=== PATIENT | male | born 1945 | race Two or more races ===

== ENCOUNTER 2024-12-17 15:16 | Inpatient (IN) | payer OTHER ==
[~2024-12-17] VITALS: Ht 167.6 cm; Wt 67.3 kg
--- NOTE | 2024-12-17 15:40 | ED.PDOC ---
SOB-HPI HPI Comments HPI: Poor Historian. HPI: 79 year old male LA NENA presents to the ED with chief complaint of SOB. EMS reports patient is coming from [facility] for complaint of respiratory failure and pulmonary edema. EMS relays that the patient had a CT Angio Chest, Bilateral Lower Ext US, and Chest XR performed at the hospital, only result being pulmonary edema with no PE and no DVT. EMS states patient was given 40mg of Lasix, Solu-Medrol, Rocephin, a DuoNeb treatment, and was placed on BiPap prior to their transfer. EMS notes patient's labs indicated Lactic Acid 2.4, INR of 1, Negative COVID-19, normal Troponin, slightly elevated BNP and D-Dimer, but PE and DVT was ruled out. EMS reports patient's EKG noted RBBB. Patient denies any chest pain, fever, chills, cough, dizziness, or N/V. Upon arrival, patient states that he feels significantly better. Initial Vitals: Temp: BP: HR: RR: O2 Sat.: Past Medical History: Insomnia, HLD, Neuropathy Past Surgical History: Denies Social History: Denies smoking, ETOH, and drug use Medication: Denies Allergies: NKDA REVIEW OF SYSTEMS: CONSTITUTIONAL: Denies acute: fever, diaphoresis, chills, generalized weakness. HEAD: Denies acute: headache, photophobia Eyes: Denies acute: Double vision, vision loss, eye pain, eye discharge. EARS: Denies acute: tinnitus, hearing loss, ear discharge, ear pain, THROAT: Denies acute: sore throat, swelling, difficulty swallowing , pain with swallowing, change in voice. NECK: Denies acute: neck pain, neck swelling, stiff neck. HEART: Denies acute : chest pain, palpitations, LUNGS: Denies acute: wheezing, cough, hemoptysis ABDOMEN: Denies acute: abdominal pain, Nausea, Vomiting, diarrhea, melena , hematemesis, hematochezia SKIN: Denies acute: rash, redness, lesions, itchiness. EXTREMITIES: Denies acute: calf pain, numbness, tingling, weakness, denies pain in extremity. Denies acute: Low back pain. Neuro: Denies acute: focal neurological deficit, motor or sensory focal neurological deficit, tremors, seizure like activity, confusion, dizziness, change in mental status, loss of bowel or bladder function, cauda equina like symptoms. : Denies acute: dysuria, hematuria, flank pain, increase in urinary frequency. PSYCH: Denies acute: hallucination, suicidal ideation, homicidal ideation. PHYSICAL EXAM: General: no acute distress, awake and alert. Head: normocephalic, atraumatic. Neck: supple, trachea is midline, no swelling. Throat: Normal phonation. Eyes:, no erythema, no purulent discharge, no proptosis, no icterus. Heart: regular rate, regular rhythm, no significant murmur appreciated. Lungs: no apparent respiratory distress, Able to speak in full sentences. No wheezing, no rhonchi, no crackles. No stridors Clear to auscultation bilaterally. Abdomen: non tender to palpation, non distended, soft, no guarding, no rebound, + bowel sounds. Neuro: Awake, Alert, oriented to name, self, situation, follows commands GCS=15. Speech is normal. Skin: no petechia, no purpura, no cyanosis, non-pale, not jaundice. Lower extremities: --no - Pitting edema no deformity, no focal swelling, no calf TTP. Makes eye contact. moves all four extremities. Face: no apparent facial droop. Chief Complaint: Shortness of Breath Time Seen by MD: 15:35 Reviewed notes: Medications, Allergies Information Source: Patient, Emergency Med Personnel Mode of Arrival: EMS Was a procedure done? Was a procedure done?: No X-Ray, Labs, Meds, VS Vital Signs Date Time Temp Pulse Resp B/P (MAP) Pulse Ox O2 Delivery O2 Flow Rate FiO2 12/17/24 20:00 98.3 79 22 133/71 (91) 99 98.3 12/17/24 20:00 79 18 99 Oxymizer 6 N/A 12/17/24 18:00 85 26 155/78 (103) 96 12/17/24 17:45 144/69 12/17/24 17:06 98.6 81 25 144/69 (94) 95 98.6 12/17/24 16:00 80 12/17/24 15:48 83 12/17/24 15:44 Oxymizer 6 N/A 12/17/24 15:30 97.3 79 23 154/71 (98) 92 97.3 12/17/24 15:22 98.5 78 20 144/69 (94) 99 Lab Test 12/17/24 16:46 12/17/24 15:34 Range/Units White Blood Count 3.5 L 4.4-10.8 10^3/uL Red Blood Count 5.53 4.5-5.90 10^6/uL Hemoglobin 16.7 13.5-17.5 g/dL Hematocrit 49.9 41.0-53.0 % Mean Corpuscular Volume 90.2 80.0-100.0 fL Mean Corpuscular Hemoglobin 30.3 28.0-32.0 pg Mean Corpuscular Hemoglobin Concent 33.5 32.0-36.0 g/dL Red Cell Distribution Width 12.8 11.8-14.3 % Platelet Count 412 140-450 10^3/uL Mean Platelet Volume 7.0 6.9-10.8 fL Neutrophils (%) (Auto) 76.0 37.0-80.0 % Lymphocytes (%) (Auto) 16.6 10.0-50.0 % Monocytes (%) (Auto) 7.4 0.0-12.0 % Eosinophils (%) (Auto) 0.0 0.0-7.0 % Basophils (%) (Auto) 0.0 0.0-2.0 % Neutrophils # (Auto) 2.7 1.6-8.6 10 ^3/uL Lymphocytes # (Auto) 0.6 0.4-5.4 10 ^3/uL Monocytes # (Auto) 0.3 0-1.3 10 ^3/uL Eosinophils # (Auto) 0 0-0.8 10 ^3/uL Basophils # (Auto) 0 0-0.2 10 ^3/uL Nucleated Red Blood Cells 0.4 % Sodium Level 140 136-145 mmol/L Potassium Level 4.4 3.5-5.1 mmol/L Chloride Level 104 98-107 mmol/L Carbon Dioxide Level 21 20-31 mmol/L Anion Gap 15 5-15 Blood Urea Nitrogen 33 H 9-23 mg/dL Creatinine 1.05 0.700-1.30 mg/dL Glomerular Filtration Rate Calc 72 >90 mL/min BUN/Creatinine Ratio 31.4 H 10.0-20.0 Serum Glucose 160 H 74-106 mg/dL Calcium Level 10.6 H 8.7-10.4 mg/dL Total Bilirubin 0.5 0.2-1.0 mg/dL Aspartate Amino Transferase (AST) 22 13-40 U/L Alanine Aminotransferase (ALT) 30 7-40 U/L Alkaline Phosphatase 112 46-116 U/L B-Type Natriuretic Peptide 131.93 0-100 pg/mL Total Protein 7.5 5.7-8.2 g/dL Albumin 5.0 H 3.2-4.8 g/dL Blood Gas Specimen Type Arterial Blood Gas Sample Site Right radial Blood Gas Patient Temperature 37.0 Arterial Blood Date Drawn [id number] Arterial Blood pH 7.468 H 7.350-7.450 Arterial Blood Partial Pressure CO2 27.8 L 35.0-48.0 mmHg Arterial Blood Partial Pressure O2 89.2 83.0-108.0 mmHg Arterial Blood HCO3 19.7 L 21.0-28.0 mmol/L Arterial Blood Oxygen Saturation 97.1 94.0-98.0 % Arterial Blood Base Excess -2.3 L -2.0-3.0 mmol/L Arterial Blood Oxyhemoglobin 96.6 94.0-98.0 % Arterial Blood Carboxyhemoglobin 0.1 L 0.5-1.5 % Arterial Blood Methemoglobin 0.4 0.0-1.5 % Nathaniel Test Yes Blood Gas Total Hemoglobin 16.70 13.5-17.5 g/dL Blood Gas Modality Nasal cannula FiO2 % 28.0 Current Medications Medications (Trade) Dose Ordered Sig/Ron Route Start Time Stop Time Status Last Admin Furosemide (Lasix Injection) 40 mg ONCE ONCE IV 12/17/24 17:00 12/17/24 17:36 DC 12/17/24 17:45 Time of 1ST Reevaluation: 16:35 Reevaluation 1ST: Unchanged Time of 2ND Reevaluation: 16:56 (Patient is no longer on a BiPAP. Patient is on Oxymizer. Patient was on his phone speaking to friends and family with normal conversations in no apparent respiratory distress.) Reevaluation 2ND: Improved Time of 3RD Reevaluation: 21:59 (The case was discussed with the admitting team (HPI, physical exam, labs and diagnostic tests that were available at the time of disposition, ED course, treatment plan) on the phone. They agreed to admit the patient to their service and assume care of this patient from this point forward. Dr. Jenkins) Reevaluation 3RD: Improved Patient Education/Counseling: Diagnosis, Treatment Family Education/Counseling: No Family Present Departure 1 Departure Time of Disposition: 16:55 Impression: Primary Impression: Pulmonary edema Additional Impressions: Acute respiratory distress Syncope and collapse Disposition: ADMITTED INPATIENT Admit to: Tele Condition: Guarded Discharged With: Self Critical Care Note Critical Care Time?: No Heart Score Heart Score: Heart Score Response (Comments) Value History Moderate Suspicious 1 EKG Repolarization Disturb 1 Age >65 2 Risk Factors >3 or Hx ASHD 2 Total 6 I personally scribed for LINDA GASPAR DO ([email or web address]) on 12/17/24 at 15:40. Electronically submitted by King Sierra ([email or web address]). LINDA GASPAR DO Dec 17, 2024 15:40
[2024-12-17 15:42] LABS: Base Excess -2.3 mmol/L (-2.0-3.0)
--- NOTE | 2024-12-17 16:00 | DVH ---
CT HEAD WITHOUT CONTRAST INDICATION: syncope, pulm edema EXAM DATE: 12/17/2024 03:39 PM COMPARISON: None RADIATION DOSE: CTDIvol: 56 mGy, DLP: 1102 mGy*cm PROCEDURE: CT scans of the head were obtained from the vertex to the skull base. Sagittal and coronal reconstructions were provided. All CT scans at this medical facility are performed using dose modulation techniques as appropriate t o a performed exam including the following: Automated exposure control was utilized; adjustment of th e MA and/or KV according to patient size; and use of iterative reconstruction technique. FINDINGS: There is sulcal and ventricular prominence. The brain otherwise shows normal morphology a nd lozano-white matter differentiation, without intracranial hemorrhage, extra-axial fluid collection, mass effect or acute large vessel infarct. The ventricles are normal in size. The basal cisterns are patent. The skull and visible facial bones are intact. The paranasal sinuses, mastoid air cells and m iddle ear cavities are well-aerated. The soft tissues of the scalp are unremarkable. IMPRESSION: No acute intracranial abnormality.
--- NOTE | 2024-12-17 16:01 | DVH ---
XY CHEST PORTABLE, HISTORY: syncope, pulm edema COMPARISON: None None TECHNICAL DATA: 1 view of the chest was obtained. FINDINGS: Lines and tubes: None Cardiomediastinal silhouette: normal Pulmonary vasculature: normal Lung expansion: normal Lung airspace: Multifocal bilateral patchy airspace opacities Lung interstitium: normal Pleura: normal Pneumothorax: no Bones: Unremarkable Other: no IMPRESSION: Multifocal bilateral patchy airspace opacities could be pulmonary edema.
--- NOTE | 2024-12-17 16:02 | ECG ---
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
[2024-12-17 17:15] LABS: Basophils # (auto) 0 10 ^3/uL (0-0.2); Eosinophils # (auto) 0 10 ^3/uL (0-0.8); Hematocrit 49.9 % (41.0-53.0); Hemoglobin 16.7 g/dL (13.5-17.5); Lymphocytes # (auto) 0.6 10 ^3/uL (0.4-5.4); Lymphocytes % (auto) 16.6 % (10.0-50.0); Mean Corpuscular Hemoglobin 30.3 pg (28.0-32.0); Mean Corpuscular Hgb Conc. 33.5 g/dL (32.0-36.0); Mean Corpuscular Volume 90.2 fL (80.0-100.0); Monocytes # (auto) 0.3 10 ^3/uL (0-1.3); Monocytes % (auto) 7.4 % (0.0-12.0); Neutrophils # (auto) 2.7 10 ^3/uL (1.6-8.6); Nucleated Red Blood Cells % 0.4 %; Platelet Count (auto) 412 10^3/uL (140-450); Red Blood Cells 5.53 10^6/uL (4.5-5.90); Red Cell Distribution Width 12.8 % (11.8-14.3); White Blood Cell 3.5 10^3/uL (4.4-10.8)
[2024-12-17] MEDS: FUROSEMIDE 40 MG/4 ML VIAL IV ONE (17:45)
[2024-12-17 17:49] LABS: Alanine Aminotransferase 30 U/L (7-40); Alkaline Phosphatase 112 U/L (46-116); Anion Gap 15 (5-15); Aspartate Aminotransferase 22 U/L (13-40); BUN/Creatinine Ratio 31.4 (10.0-20.0); Carbon Dioxide 21 mmol/L (20-31)
[2024-12-17 17:50] LABS: Bilirubin, Total 0.5 mg/dL (0.2-1.0); Total Protein 7.5 g/dL (5.7-8.2)
[2024-12-17 17:52] LABS: Blood Urea Nitrogen 33 mg/dL (9-23); Calcium 10.6 mg/dL (8.7-10.4); Chloride 104 mmol/L (98-107); Glucose 160 mg/dL (74-106); Potassium 4.4 mmol/L (3.5-5.1); Sodium 140 mmol/L (136-145)
[2024-12-17 20:00] VITALS: PULSE 79; RESP 18; O2SAT 99
[2024-12-17] MEDS ORDERED: NITROGLYCERIN 0.4 MG SL TAB SL PRN (23:15)
[2024-12-17] MEDS ORDERED: MORPHINE SULFATE INJ 2 MG/ml SYRG IV PRN (23:15)
[2024-12-17] MEDS: IPRATROPIUM BROM 0.5 MG/2.5ML INH SOL NEB SCH (23:33)
[2024-12-17 23:34] VITALS: PULSE 72; RESP 18; O2SAT 98
[2024-12-17] MEDS: ALBUTEROL SULF 2.5 MG/0.5ML(0.5%) NEB SOLN NEB SCH (23:34)
[2024-12-17 23:39] VITALS: PULSE 82; RESP 22; O2SAT 97
[2024-12-17 23:50] LABS: INR 1.08 (0.9-1.15); Prothrombin Time 11.4 sec (9.3-11.8)
[2024-12-18] VITALS (9 sets, daily range): BP systolic 113–135; BP diastolic 64–71; PULSE 69–102; RESP 14–22; TEMP 98–98.6; O2SAT 95–99
--- NOTE | 2024-12-18 01:14 | DVHHP2 ---
Admitting Diagnosis: Acute respiratory failure Pulmonary edema History of Present Illness HPI 79 y.o. male was transferred from [facility] due to acute respiratory failure. Per CTA report from [facility] patient has pulmonary edema. PE and DVT were ruled out. Per EMS, patient was given 40mg of IV Lasix, Solu-Medrol, Rocephin, a DuoNeb treatment, and was placed on BiPAP prior to their transfer. EMS notes patient's labs indicated Lactic Acid 2.4, INR of 1, Negative COVID-19, normal Troponin, slightly elevated BNP and D-Dimer. EMS reports patient's EKG noted RBBB. Patient denied fever and chills. After arrival to [facility] patient was able to be without BiPAP, on oxymizer 6L. Review of Systems Pulmonary/Respiratory: Dyspnea H&P Exam Vital Signs Vital Signs Date Time Temp Pulse Resp B/P (MAP) Pulse Ox O2 Delivery O2 Flow Rate FiO2 12/18/24 00:03 102 14 133/71 97 3.0 12/17/24 23:34 Oxymizer 12/17/24 23:34 N/A 12/17/24 20:00 98.3 98.3 General Appeara: Mild distress Head Exam: Normal inspection Neck Exam: Non-tender Eye Exam: bilateral eye PERRL, bilateral eye EOMI Pulmonary/Respiratory: Crackles Cardiovascular/Chest: Tachycardia Abdominal Exam: Normal bowel sounds Neuro/Mental St: Alert, Oriented Labs/Xrays Labs Test 12/17/24 23:25 12/17/24 16:46 12/17/24 15:34 Range/Units Prothrombin Time 11.4 9.3-11.8 sec Prothrombin Time INR 1.08 0.9-1.15 Troponin I High Sensitivity 22 </=54 ng/L White Blood Count 3.5 L 4.4-10.8 10^3/uL Red Blood Count 5.53 4.5-5.90 10^6/uL Hemoglobin 16.7 13.5-17.5 g/dL Hematocrit 49.9 41.0-53.0 % Mean Corpuscular Volume 90.2 80.0-100.0 fL Mean Corpuscular Hemoglobin 30.3 28.0-32.0 pg Mean Corpuscular Hemoglobin Concent 33.5 32.0-36.0 g/dL Red Cell Distribution Width 12.8 11.8-14.3 % Platelet Count 412 140-450 10^3/uL Mean Platelet Volume 7.0 6.9-10.8 fL Neutrophils (%) (Auto) 76.0 37.0-80.0 % Lymphocytes (%) (Auto) 16.6 10.0-50.0 % Monocytes (%) (Auto) 7.4 0.0-12.0 % Eosinophils (%) (Auto) 0.0 0.0-7.0 % Basophils (%) (Auto) 0.0 0.0-2.0 % Neutrophils # (Auto) 2.7 1.6-8.6 10 ^3/uL Lymphocytes # (Auto) 0.6 0.4-5.4 10 ^3/uL Monocytes # (Auto) 0.3 0-1.3 10 ^3/uL Eosinophils # (Auto) 0 0-0.8 10 ^3/uL Basophils # (Auto) 0 0-0.2 10 ^3/uL Nucleated Red Blood Cells 0.4 % Sodium Level 140 136-145 mmol/L Potassium Level 4.4 3.5-5.1 mmol/L Chloride Level 104 98-107 mmol/L Carbon Dioxide Level 21 20-31 mmol/L Anion Gap 15 5-15 Blood Urea Nitrogen 33 H 9-23 mg/dL Creatinine 1.05 0.700-1.30 mg/dL Glomerular Filtration Rate Calc 72 >90 mL/min BUN/Creatinine Ratio 31.4 H 10.0-20.0 Serum Glucose 160 H 74-106 mg/dL Calcium Level 10.6 H 8.7-10.4 mg/dL Total Bilirubin 0.5 0.2-1.0 mg/dL Aspartate Amino Transferase (AST) 22 13-40 U/L Alanine Aminotransferase (ALT) 30 7-40 U/L Alkaline Phosphatase 112 46-116 U/L B-Type Natriuretic Peptide 131.93 0-100 pg/mL Total Protein 7.5 5.7-8.2 g/dL Albumin 5.0 H 3.2-4.8 g/dL Blood Gas Specimen Type Arterial Blood Gas Sample Site Right radial Blood Gas Patient Temperature 37.0 Arterial Blood Date Drawn [id number] Arterial Blood pH 7.468 H 7.350-7.450 Arterial Blood Partial Pressure CO2 27.8 L 35.0-48.0 mmHg Arterial Blood Partial Pressure O2 89.2 83.0-108.0 mmHg Arterial Blood HCO3 19.7 L 21.0-28.0 mmol/L Arterial Blood Oxygen Saturation 97.1 94.0-98.0 % Arterial Blood Base Excess -2.3 L -2.0-3.0 mmol/L Arterial Blood Oxyhemoglobin 96.6 94.0-98.0 % Arterial Blood Carboxyhemoglobin 0.1 L 0.5-1.5 % Arterial Blood Methemoglobin 0.4 0.0-1.5 % Nathaniel Test Yes Blood Gas Total Hemoglobin 16.70 13.5-17.5 g/dL Blood Gas Modality Nasal cannula FiO2 % 28.0 Assessment/Plan Problem List: (1) Acute respiratory distress (2) Pulmonary edema Plan IV Lasix, Duoneb, SOlu Medrol IV, Pulmonary consult Plan discussed with: Patient CHANTE LACY MD Dec 18, 2024 01:14
[2024-12-18 07:10] LABS: Basophils # (auto) 0 10 ^3/uL (0-0.2); Basophils % (auto) 0.1 % (0.0-2.0); Eosinophils # (auto) 0 10 ^3/uL (0-0.8); Hematocrit 42.7 % (41.0-53.0); Hemoglobin 14.7 g/dL (13.5-17.5); Lymphocytes # (auto) 1.4 10 ^3/uL (0.4-5.4); Lymphocytes % (auto) 10.7 % (10.0-50.0); Mean Corpuscular Hemoglobin 30.4 pg (28.0-32.0); Mean Corpuscular Hgb Conc. 34.5 g/dL (32.0-36.0); Mean Corpuscular Volume 88.2 fL (80.0-100.0); Monocytes # (auto) 1.1 10 ^3/uL (0-1.3); Neutrophils # (auto) 10.9 10 ^3/uL (1.6-8.6); Neutrophils % (auto) 81.2 % (37.0-80.0); Platelet Count (auto) 370 10^3/uL (140-450); Red Blood Cells 4.84 10^6/uL (4.5-5.90); Red Cell Distribution Width 12.5 % (11.8-14.3); White Blood Cell 13.4 10^3/uL (4.4-10.8)
[2024-12-18 07:30] LABS: Alanine Aminotransferase 22 U/L (7-40); Albumin 4.8 g/dL (3.2-4.8); Alkaline Phosphatase 96 U/L (46-116); Anion Gap 11 (5-15); BUN/Creatinine Ratio 30.8 (10.0-20.0); Calcium 10.1 mg/dL (8.7-10.4); Carbon Dioxide 26 mmol/L (20-31); Chloride 104 mmol/L (98-107); Potassium 4.4 mmol/L (3.5-5.1); Sodium 141 mmol/L (136-145)
[2024-12-18 07:31] LABS: Bilirubin, Total 0.7 mg/dL (0.2-1.0); Total Protein 7.2 g/dL (5.7-8.2)
[2024-12-18 07:34] LABS: Aspartate Aminotransferase 12 U/L (13-40); Blood Urea Nitrogen 32 mg/dL (9-23); Glucose 131 mg/dL (74-106)
[2024-12-18] MEDS: FUROSEMIDE 40 MG/4 ML VIAL IV SCH (07:50)
[2024-12-18] MEDS: cefTRIAXone 1GM/50ML D5W 50 ML IV SCH (09:59)
[2024-12-18] MEDS ORDERED: AZITHROMYCIN 500MG/ 250ML 250 ML IV SCH (20:15)
[2024-12-18] MEDS: DOXYCYCLINE 100 MG TAB/CAP PO SCH (21:54)
--- NOTE | 2024-12-18 23:19 | DVHINCON2 ---
Date of service: Dec 18, 2024 Referring Physician Yuri Reason for Consultation pulmonary edema, abnormal EKG History of Present Illness This is a 79 year old male with a PMH of insomnia, HLD, Neuropathy who presented to the ED by EMS with complaints of SOB. EMS brought the patient in from [facility] due to complaints of respiratory failure and pulmonary edema. EMS relays that the patient had a CT Angio Chest, Bilateral Lower Ext US, and Chest XR performed at the hospital, only result being pulmonary edema with no PE and no DVT. EMS states patient was given 40mg of Lasix, Solu-Medrol, Rocephin, a DuoNeb treatment, and was placed on BiPap prior to their transfer. EMS notes patient's labs indicated Lactic Acid 2.4, INR of 1, Negative COVID-19, normal Troponin, slightly elevated BNP and D-Dimer, but PE and DVT was ruled out. EMS reports patient's EKG noted RBBB. EKG upon arrival shoed RBBB and LAFB at 80. Chest x-ray shows multifocal bilateral patchy airspace opacities could be pulmonary edema. CT head shows no acute intracranial abnormality. Patient was admitted to the hospital. I am asked to consult on this patient. Family History: FHx: cancer G8 MOTHER Allergies: Coded Allergies: NO KNOWN ALLERGIES (Unverified , 12/17/24) Current Medications Current Medications Medications (Trade) Dose Ordered Sig/Ron Route PRN Reason Start Time Stop Time Status Last Admin Nitroglycerin (Ntrostat Sublingual) 0.4 mg Q5MINP PRN SL FOR CHEST PAIN 12/17/24 23:15 Morphine Sulfate 2 mg Q30M PRN IV FOR CHEST PAIN 12/17/24 23:15 Furosemide (Lasix Injection) 40 mg Q8HR IV 12/18/24 06:00 12/18/24 21:54 Albuterol (Ventolin Medneb) 2.5 mg Q6HR NEB 12/18/24 00:00 12/18/24 19:26 Ipratropium [place] (Atrovent Medneb) 0.5 mg Q6HP NEB 12/18/24 00:00 12/18/24 19:27 Ceftriaxone Sodium 50 ml @ 100 mls/hr DAILY IV 12/18/24 10:00 12/18/24 09:59 Azithromycin 250 ml @ 125 mls/hr DAILY IV 12/18/24 20:15 UNV Doxycycline Monohydrate (Vibramycin Tablet) 100 mg BID PO 12/18/24 22:00 12/18/24 21:54 Review of Systems CONSTITUTIONAL: Denies acute: fever, diaphoresis, chills, generalized weakness. HEAD: Denies acute: headache, photophobia Eyes: Denies acute: Double vision, vision loss, eye pain, eye discharge. EARS: Denies acute: tinnitus, hearing loss, ear discharge, ear pain, THROAT: Denies acute: sore throat, swelling, difficulty swallowing , pain with swallowing, change in voice. NECK: Denies acute: neck pain, neck swelling, stiff neck. HEART: Denies acute : chest pain, palpitations, LUNGS: Denies acute: wheezing, cough, hemoptysis ABDOMEN: Denies acute: abdominal pain, Nausea, Vomiting, diarrhea, melena , hematemesis, hematochezia SKIN: Denies acute: rash, redness, lesions, itchiness. EXTREMITIES: Denies acute: calf pain, numbness, tingling, weakness, denies pain in extremity. Denies acute: Low back pain. Neuro: Denies acute: focal neurological deficit, motor or sensory focal neurological deficit, tremors, seizure like activity, confusion, dizziness, change in mental status, loss of bowel or bladder function, cauda equina like symptoms. : Denies acute: dysuria, hematuria, flank pain, increase in urinary frequency. PSYCH: Denies acute: hallucination, suicidal ideation, homicidal ideation. Vital Signs Vital Signs Date Time Temp Pulse Resp B/P (MAP) Pulse Ox O2 Delivery O2 Flow Rate FiO2 12/18/24 21:54 113/64 12/18/24 21:00 98.6 69 17 96 98.6 12/18/24 16:10 Nasal Cannula* 2 28 Physical Exam GENERAL: Awake, alert, oriented. LUNGS: Clear. CARDIOVASCULAR: Heart sounds are good. ABDOMEN: Soft. Labs/Diagnostic Data Labs Test 12/18/24 06:15 12/17/24 23:25 12/17/24 16:46 12/17/24 15:34 Range/Units White Blood Count 13.4 #H 4.4-10.8 10^3/uL Red Blood Count 4.84 4.5-5.90 10^6/uL Hemoglobin 14.7 13.5-17.5 g/dL Hematocrit 42.7 # 41.0-53.0 % Mean Corpuscular Volume 88.2 80.0-100.0 fL Mean Corpuscular Hemoglobin 30.4 28.0-32.0 pg Mean Corpuscular Hemoglobin Concent 34.5 32.0-36.0 g/dL Red Cell Distribution Width 12.5 11.8-14.3 % Platelet Count 370 140-450 10^3/uL Mean Platelet Volume 7.1 6.9-10.8 fL Neutrophils (%) (Auto) 81.2 H 37.0-80.0 % Lymphocytes (%) (Auto) 10.7 10.0-50.0 % Monocytes (%) (Auto) 8.0 0.0-12.0 % Eosinophils (%) (Auto) 0.0 0.0-7.0 % Basophils (%) (Auto) 0.1 0.0-2.0 % Neutrophils # (Auto) 10.9 H 1.6-8.6 10 ^3/uL Lymphocytes # (Auto) 1.4 0.4-5.4 10 ^3/uL Monocytes # (Auto) 1.1 0-1.3 10 ^3/uL Eosinophils # (Auto) 0 0-0.8 10 ^3/uL Basophils # (Auto) 0 0-0.2 10 ^3/uL Nucleated Red Blood Cells 0.0 % Sodium Level 141 136-145 mmol/L Potassium Level 4.4 3.5-5.1 mmol/L Chloride Level 104 98-107 mmol/L Carbon Dioxide Level 26 20-31 mmol/L Anion Gap 11 5-15 Blood Urea Nitrogen 32 H 9-23 mg/dL Creatinine 1.04 0.700-1.30 mg/dL Glomerular Filtration Rate Calc 73 >90 mL/min BUN/Creatinine Ratio 30.8 H 10.0-20.0 Serum Glucose 131 H 74-106 mg/dL Calcium Level 10.1 8.7-10.4 mg/dL Total Bilirubin 0.7 0.2-1.0 mg/dL Aspartate Amino Transferase (AST) 12 L 13-40 U/L Alanine Aminotransferase (ALT) 22 7-40 U/L Alkaline Phosphatase 96 46-116 U/L Troponin I High Sensitivity 19 </=54 ng/L Total Protein 7.2 5.7-8.2 g/dL Albumin 4.8 3.2-4.8 g/dL Prothrombin Time 11.4 9.3-11.8 sec Prothrombin Time INR 1.08 0.9-1.15 B-Type Natriuretic Peptide 131.93 0-100 pg/mL Blood Gas Specimen Type Arterial Blood Gas Sample Site Right radial Blood Gas Patient Temperature 37.0 Arterial Blood Date Drawn [id number] Arterial Blood pH 7.468 H 7.350-7.450 Arterial Blood Partial Pressure CO2 27.8 L 35.0-48.0 mmHg Arterial Blood Partial Pressure O2 89.2 83.0-108.0 mmHg Arterial Blood HCO3 19.7 L 21.0-28.0 mmol/L Arterial Blood Oxygen Saturation 97.1 94.0-98.0 % Arterial Blood Base Excess -2.3 L -2.0-3.0 mmol/L Arterial Blood Oxyhemoglobin 96.6 94.0-98.0 % Arterial Blood Carboxyhemoglobin 0.1 L 0.5-1.5 % Arterial Blood Methemoglobin 0.4 0.0-1.5 % Nathaniel Test Yes Blood Gas Total Hemoglobin 16.70 13.5-17.5 g/dL Blood Gas Modality Nasal cannula FiO2 % 28.0 Assessment Acute respiratory distress. Pulmonary edema. Plan/Recommendation I agree with your ongoing assessment and care of plan. Telemetry reviewed. Echocardiogram. IV antibiotics as ordered. Diuretics with Lasix. Nebulized breathing treatments. Morphine for pain management. Additional plan as per the hospital course. A total of 45 minutes was spent reviewing the patient record, examining the patient, making a diagnostic and therapeutic plan, discussing this plan with medical personnel, following up on diagnostic studies and following the patient for clinical stability excluding any and all procedures. At least 50% of this ti me was spent in direct, doxi-fr-etec contact. Plan discussed with: Patient EARNESTINE YOUSSEF MD Dec 18, 2024 23:19
[2024-12-19] VITALS (13 sets, daily range): BP systolic 109–120; BP diastolic 64–80; PULSE 69–104; RESP 16–18; TEMP 97.9–98.8; O2SAT 93–98
[2024-12-19 06:42] LABS: Basophils # (auto) 0 10 ^3/uL (0-0.2); Basophils % (auto) 0.1 % (0.0-2.0); Eosinophils # (auto) 0 10 ^3/uL (0-0.8); Eosinophils % (auto) 0.3 % (0.0-7.0); Hematocrit 41.5 % (41.0-53.0); Hemoglobin 14.4 g/dL (13.5-17.5); Lymphocytes # (auto) 1.8 10 ^3/uL (0.4-5.4); Lymphocytes % (auto) 16.6 % (10.0-50.0); Mean Corpuscular Hemoglobin 30.4 pg (28.0-32.0); Mean Corpuscular Hgb Conc. 34.8 g/dL (32.0-36.0); Mean Corpuscular Volume 87.4 fL (80.0-100.0); Monocytes # (auto) 0.9 10 ^3/uL (0-1.3); Neutrophils # (auto) 8.2 10 ^3/uL (1.6-8.6); Platelet Count (auto) 343 10^3/uL (140-450); Red Blood Cells 4.74 10^6/uL (4.5-5.90); Red Cell Distribution Width 12.4 % (11.8-14.3)
[2024-12-19 07:03] LABS: Alanine Aminotransferase 20 U/L (7-40); Albumin 4.5 g/dL (3.2-4.8); Alkaline Phosphatase 103 U/L (46-116); Anion Gap 8 (5-15); Aspartate Aminotransferase 14 U/L (13-40); BUN/Creatinine Ratio 33.7 (10.0-20.0); Calcium 10.4 mg/dL (8.7-10.4); Carbon Dioxide 29 mmol/L (20-31)
[2024-12-19 07:04] LABS: Bilirubin, Total 0.7 mg/dL (0.2-1.0); Total Protein 7.1 g/dL (5.7-8.2)
[2024-12-19 07:07] LABS: Blood Urea Nitrogen 30 mg/dL (9-23); Chloride 102 mmol/L (98-107); Glucose 106 mg/dL (74-106); Potassium 3.4 mmol/L (3.5-5.1); Sodium 139 mmol/L (136-145)
--- NOTE | 2024-12-19 11:51 | DVHPN2 ---
Progress Note - Dictate Date Seen: Dec 19, 2024 Medical Necessity Reason Pt with a Central, PICC or Fol: No Subjective Patient notes improvement in respiratory status. Denies any new symptoms. vital signs Vital Sign Date Time Temp Pulse Resp B/P (MAP) Pulse Ox O2 Delivery O2 Flow Rate FiO2 12/19/24 09:00 98.1 83 18 109/68 (82) 93 98.1 12/19/24 08:00 Nasal Cannula* 2 28 Total Intake and Output 12/18/24 12/18/24 12/19/24 15:00 23:00 07:00 Intake Total 0 ml 550 ml Balance 0 ml 550 ml medications Current Medications Medications Dose Ordered Sig/Ron Route Start Time Stop Time Status Last Admin Dose Admin Nitroglycerin 0.4 mg Q5MINP PRN SL 12/17/24 23:15 Morphine Sulfate 2 mg Q30M PRN IV 12/17/24 23:15 Furosemide 40 mg Q8HR IV 12/18/24 06:00 12/19/24 05:53 40 MG Albuterol 2.5 mg Q6HR NEB 12/18/24 00:00 12/19/24 07:53 2.5 MG Ipratropium [place] 0.5 mg Q6HP NEB 12/18/24 00:00 12/19/24 07:53 0.5 MG Ceftriaxone Sodium 50 ml @ 100 mls/hr DAILY IV 12/18/24 10:00 12/19/24 10:14 100 MLS/HR Azithromycin 250 ml @ 125 mls/hr DAILY IV 12/18/24 20:15 UNV Doxycycline Monohydrate 100 mg BID PO 12/18/24 22:00 12/19/24 10:13 100 MG Prednisone 40 mg DAILY PO 12/19/24 11:45 UNV objective General appearance: No acute distress Respiratory: Coarse breath sounds Cardiovascular: Regular rate and rhythm, no murmurs. No edema Abdomen: Soft, nondistended, nontender, bowel sounds present MSK: Normal range of motion. Neuro: Alert, no neurological deficits Psych: Appropriate mood and affect. laboratory and microbiology Laboratory Tests 12/19/24 05:49 Test 12/19/24 05:49 Range/Units Serum Glucose 106 74-106 mg/dL Assessment/Plan 1. Acute respiratory failure secondary to pneumonia, unspecified gram-positive prescribed negative organism 2. History of COPD Plan: -Pulmonary consulted for acute respiratory failure -Home oxygen ordered -Continue ceftriaxone and doxycycline -Avoid QT prolonging medications given QTc elongation on EKG -Influenza and COVID. -Procalcitonin pending -Plan to obtain CT imaging results from [facility] -Cardiology consulted to rule out CHF, Dr. Ye -TTE ordered, results pending -DuoNebs, prednisone 40 mg daily -Lasix decreased to 40 mg IV daily -Full code Plan discussed with: Patient CLIFFORD VAZQUEZ DO Dec 19, 2024 11:51
[2024-12-19 12:07] LABS: COVID19 ANTIGEN SOFIA FIA NEGATIVE (NEGATIVE); Rapid Influenza A Negative (Negative); Rapid Influenza B Negative (Negative)
[2024-12-19] MEDS: predniSONE 20 MG TAB PO SCH (12:45)
[2024-12-19] MEDS: GLYCERIN ADULT RECTAL SUPP PR ONE (16:15)
--- NOTE | 2024-12-19 16:50 | DVHSR ---
APPROVED REPORT EXAM: Two-dimensional and M-mode echocardiogram with Doppler and color Doppler. Blood Pressure: 122/64 mmHg INDICATION Acute respiratory failure RISK FACTORS Height: 5'6", Weight: 149 DIMENSIONS LVDd5.0 (3.8-5.7cm)LA (2D)4.4 (1.9-4.0cm)Aortic Root3.2 (2.0-3.7cm) LVDs3.4 (2.5-4.0cm)LA (MM) (1.9-4.0cm)Aortic Cusp Exc0.4 (1.5-2.0cm) EF (%) 60.0 (55-70%)Rt. Atrium3.8 (1.9-4.0cm)Asc. Aorta cm IVSd1.1 (0.7-1.1cm)RV (D)3.6 (1.8-2.4cm) PWd1.2 (0.7-1.1cm) Mitral Valve MitralMitral Stenosis E wave0.63m/sMV Mean GR.mmHg A wave1.06m/sMV Peak GR.mmHg E/A ratio0.62D MVAcm2 DECEL [id number] 1/2 [place] Aortic Valve Aortic ValveAortic Stenosis V11.15m/Margi Mean GR.76mmHg V25.32m/Margi Peak GR.114mmHg LVOT Diameter1.9 (1.8-2.4cm)Doppler AVA0.61cm2 AI P 1/2 Mxlc842.59ms Pulmonic Valve V21.10m/s Other Information Quality : Technically LimitedRhythm : Technically limited study due to body habitus. Conclusion Sinus rhythm. Concentric LVH with left atrial and right ventricular enlargement. Mild aortic root enlargement. Calcification of the non coronary cusp with immobility of the non coronary cusp. Left ventricular function is preserved at 60% with normal RV function. Mild aortic insufficiency. No pericardial effusion masses or vegetations.
[2024-12-19] MEDS: guaiFENesin-DM 100/10mg/5ml SYR PO PRN (17:38)
[2024-12-19] MEDS: FUROSEMIDE 40 MG/4 ML VIAL IV SCH (17:39)
[2024-12-19] MEDS: HYDROcodone-ACET 5/325MG TAB PO PRN (18:09)
[2024-12-19] MEDS ORDERED: AUG875T PO (20:39)
[2024-12-19] MEDS ORDERED: DOXY-286 PO (20:39)
[2024-12-19] MEDS ORDERED: PRED20TA2 PO (20:40)
--- NOTE | 2024-12-19 20:44 | DVHPN2 ---
Progress Note - Dictate Date Seen: Dec 19, 2024 Medical Necessity Reason Pt with a Central, PICC or Fol: No Subjective Patient was seen and evaluated in follow up. Patient is complaining of rectum pain. Patient notes improvement in respiratory status. WBC 11, K 3.4, BUN 30. Influenza A/B and covid are negative. Telemetry reviewed. vital signs Vital Sign Date Time Temp Pulse Resp B/P (MAP) Pulse Ox O2 Delivery O2 Flow Rate FiO2 12/19/24 09:00 98.1 83 18 109/68 (82) 93 98.1 12/19/24 08:00 Nasal Cannula* 2 28 Total Intake and Output 12/18/24 12/18/24 12/19/24 14:59 22:59 06:59 Intake Total 0 ml 550 ml Balance 0 ml 550 ml medications Current Medications Medications Dose Ordered Sig/Ron Route Start Time Stop Time Status Last Admin Dose Admin Nitroglycerin 0.4 mg Q5MINP PRN SL 12/17/24 23:15 Morphine Sulfate 2 mg Q30M PRN IV 12/17/24 23:15 Furosemide 40 mg Q8HR IV 12/18/24 06:00 12/19/24 05:53 40 MG Albuterol 2.5 mg Q6HR NEB 12/18/24 00:00 12/19/24 07:53 2.5 MG Ipratropium [place] 0.5 mg Q6HP NEB 12/18/24 00:00 12/19/24 07:53 0.5 MG Ceftriaxone Sodium 50 ml @ 100 mls/hr DAILY IV 12/18/24 10:00 12/19/24 10:14 100 MLS/HR Azithromycin 250 ml @ 125 mls/hr DAILY IV 12/18/24 20:15 UNV Doxycycline Monohydrate 100 mg BID PO 12/18/24 22:00 12/19/24 10:13 100 MG objective GENERAL: Awake, alert, oriented. LUNGS: Clear. CARDIOVASCULAR: Heart sounds are good. ABDOMEN: Soft. laboratory and microbiology Laboratory Tests 12/19/24 05:49 Test 12/19/24 05:49 Range/Units Serum Glucose 106 74-106 mg/dL Problem List Acute respiratory distress. Pulmonary edema. Assessment/Plan Continued all current supportive medical care. Echocardiogram. IV antibiotics as ordered. Diuretics with Lasix. Nebulized breathing treatments. Morphine for pain management. Additional plan as per the hospital course. Plan discussed with: Patient EARNESTINE YOUSSEF MD Dec 19, 2024 11:40
[2024-12-19] MEDS: HYDROCORTISONE ACET 25 MG RECTAL SUPP PR SCH (21:32)
[2024-12-20] VITALS (7 sets, daily range): BP systolic 108–122; BP diastolic 41–67; PULSE 64–76; RESP 16–18; TEMP 36.5; O2SAT 94–98
[2024-12-20] MEDS ORDERED: FUROSEMIDE 40 MG/4 ML VIAL IV SCH (06:00)
--- NOTE | 2024-12-20 06:20 | DVH ---
CHEST RADIOGRAPH Indication: Review of pulm edema improvement Technique: Single frontal view of the chest was obtained Comparison: XY CHEST PORTABLE on DOS: 12/17/24 IMPRESSION: Heart appears stable in size. Pulmonary aeration has significantly improved with mild residual inter stitial prominence and pulmonary vascular congestion. No sizable effusion or pneumothorax.
[2024-12-20 07:15] LABS: Basophils # (auto) 0 10 ^3/uL (0-0.2); Basophils % (auto) 0.1 % (0.0-2.0); Eosinophils # (auto) 0 10 ^3/uL (0-0.8); Eosinophils % (auto) 0.2 % (0.0-7.0); Hematocrit 42.1 % (41.0-53.0); Hemoglobin 14.5 g/dL (13.5-17.5); Lymphocytes # (auto) 1.6 10 ^3/uL (0.4-5.4); Lymphocytes % (auto) 12.8 % (10.0-50.0); Mean Corpuscular Hgb Conc. 34.6 g/dL (32.0-36.0); Mean Corpuscular Volume 86.6 fL (80.0-100.0); Monocytes # (auto) 0.8 10 ^3/uL (0-1.3); Monocytes % (auto) 6.3 % (0.0-12.0); Neutrophils % (auto) 80.6 % (37.0-80.0); Nucleated Red Blood Cells % 0.1 %; Platelet Count (auto) 400 10^3/uL (140-450); Red Blood Cells 4.86 10^6/uL (4.5-5.90); Red Cell Distribution Width 12.3 % (11.8-14.3); White Blood Cell 12.5 10^3/uL (4.4-10.8)
[2024-12-20 07:37] LABS: Alanine Aminotransferase 23 U/L (7-40); Albumin 4.7 g/dL (3.2-4.8); Alkaline Phosphatase 111 U/L (46-116); Anion Gap 14 (5-15); Aspartate Aminotransferase 14 U/L (13-40); BUN/Creatinine Ratio 36.1 (10.0-20.0); Bilirubin, Total 0.7 mg/dL (0.2-1.0); Calcium 10.2 mg/dL (8.7-10.4); Carbon Dioxide 28 mmol/L (20-31); Potassium 3.7 mmol/L (3.5-5.1); Sodium 138 mmol/L (136-145)
[2024-12-20 07:43] LABS: Blood Urea Nitrogen 35 mg/dL (9-23); Chloride 96 mmol/L (98-107); Glucose 112 mg/dL (74-106)
[2024-12-20] MEDS ORDERED: SPIR25TA8 PO (11:43)
--- NOTE | 2024-12-20 13:59 | DVHPN2 ---
Progress Note - Dictate Date Seen: Dec 20, 2024 Medical Necessity Reason Pt with a Central, PICC or Fol: No Subjective Patient was seen and evaluated in follow up. Patient has no new complaints at this time. Patient denies any cardiac symptoms. Patient is cardiac stable for discharge. Telemetry reviewed. vital signs Vital Sign Date Time Temp Pulse Resp B/P (MAP) Pulse Ox O2 Delivery O2 Flow Rate FiO2 12/20/24 09:04 36.5 12/20/24 08:49 74 18 122/67 (85) 97 12/20/24 08:00 Nasal Cannula 2.0 12/20/24 08:00 28 Total Intake and Output 12/19/24 12/19/24 12/20/24 15:00 23:00 07:00 Intake Total 100 ml 750 ml 300 ml Balance 100 ml 750 ml 300 ml medications Current Medications Medications Dose Ordered Sig/Ron Route Start Time Stop Time Status Last Admin Dose Admin Nitroglycerin 0.4 mg Q5MINP PRN SL 12/17/24 23:15 Morphine Sulfate 2 mg Q30M PRN IV 12/17/24 23:15 Albuterol 2.5 mg Q6HR NEB 12/18/24 00:00 12/20/24 00:25 2.5 MG Ipratropium [place] 0.5 mg Q6HP NEB 12/18/24 00:00 12/20/24 00:25 0.5 MG Ceftriaxone Sodium 50 ml @ 100 mls/hr DAILY IV 12/18/24 10:00 12/20/24 08:35 100 MLS/HR Azithromycin 250 ml @ 125 mls/hr DAILY IV 12/18/24 20:15 UNV Doxycycline Monohydrate 100 mg BID PO 12/18/24 22:00 12/20/24 08:37 100 MG Prednisone 40 mg DAILY PO 12/19/24 11:45 12/20/24 08:37 40 MG Furosemide 40 mg BID IV 12/19/24 18:00 12/20/24 08:36 40 MG Guaifenesin/ Dextromethorphan 10 ml Q4HP PRN PO 12/19/24 16:30 12/20/24 06:58 10 ML Acetaminophen/ Hydrocodone Bitart 1 tab Q6HPRN PRN PO 12/19/24 17:30 12/19/24 18:09 1 TAB Hydrocortisone Acetate 25 mg Q12HR AK 12/19/24 22:00 12/20/24 08:37 25 MG objective GENERAL: Awake, alert, oriented. LUNGS: Clear. CARDIOVASCULAR: Heart sounds are good. ABDOMEN: Soft. laboratory and microbiology Laboratory Tests 12/20/24 05:48 Test 12/20/24 05:48 Range/Units Serum Glucose 112 H 74-106 mg/dL Problem List Acute respiratory distress. Pulmonary edema. Assessment/Plan Continued all current supportive medical care. Echocardiogram. IV antibiotics as ordered. Diuretics with Lasix. Nebulized breathing treatments. Morphine for pain management. Additional plan as per the hospital course. Plan discussed with: Patient EARNESTINE YOUSSEF MD Dec 20, 2024 12:02
--- NOTE | 2024-12-20 14:52 | DVHDS2 ---
Discharge Summary Date of Admission Dec 18, 2024 at 06:00 Date of Discharge: Dec 20, 2024 Labs/Diagnostic Data: Laboratory Results Test 12/20/24 05:48 12/19/24 11:14 12/18/24 06:15 12/17/24 23:25 White Blood Count 12.5 10^3/uL (4.4-10.8) Red Blood Count 4.86 10^6/uL (4.5-5.90) Hemoglobin 14.5 g/dL (13.5-17.5) Hematocrit 42.1 % (41.0-53.0) Mean Corpuscular Volume 86.6 fL (80.0-100.0) Mean Corpuscular Hemoglobin 30.0 pg (28.0-32.0) Mean Corpuscular Hemoglobin Concent 34.6 g/dL (32.0-36.0) Red Cell Distribution Width 12.3 % (11.8-14.3) Platelet Count 400 10^3/uL (140-450) Mean Platelet Volume 7.3 fL (6.9-10.8) Neutrophils (%) (Auto) 80.6 % (37.0-80.0) Lymphocytes (%) (Auto) 12.8 % (10.0-50.0) Monocytes (%) (Auto) 6.3 % (0.0-12.0) Eosinophils (%) (Auto) 0.2 % (0.0-7.0) Basophils (%) (Auto) 0.1 % (0.0-2.0) Neutrophils # (Auto) 10.0 10 ^3/uL (1.6-8.6) Lymphocytes # (Auto) 1.6 10 ^3/uL (0.4-5.4) Monocytes # (Auto) 0.8 10 ^3/uL (0-1.3) Eosinophils # (Auto) 0 10 ^3/uL (0-0.8) Basophils # (Auto) 0 10 ^3/uL (0-0.2) Nucleated Red Blood Cells 0.1 % Sodium Level 138 mmol/L (136-145) Potassium Level 3.7 mmol/L (3.5-5.1) Chloride Level 96 mmol/L (98-107) Carbon Dioxide Level 28 mmol/L (20-31) Anion Gap 14 (5-15) Blood Urea Nitrogen 35 mg/dL (9-23) Creatinine 0.97 mg/dL (0.700-1.30) Glomerular Filtration Rate Calc 79 mL/min (>90) BUN/Creatinine Ratio 36.1 (10.0-20.0) Serum Glucose 112 mg/dL (74-106) Calcium Level 10.2 mg/dL (8.7-10.4) Total Bilirubin 0.7 mg/dL (0.2-1.0) Aspartate Amino Transferase (AST) 14 U/L (13-40) Alanine Aminotransferase (ALT) 23 U/L (7-40) Alkaline Phosphatase 111 U/L (46-116) Total Protein 7.0 g/dL (5.7-8.2) Albumin 4.7 g/dL (3.2-4.8) Influenza Type A Antigen Negative (Negative) Influenza Type B Antigen Negative (Negative) SARS-CoV-2 Antigen (Rapid) Negative (NEGATIVE) Troponin I High Sensitivity 19 ng/L (</=54) Prothrombin Time 11.4 sec (9.3-11.8) Prothrombin Time INR 1.08 (0.9-1.15) Test 12/17/24 16:46 12/17/24 15:34 B-Type Natriuretic Peptide 131.93 pg/mL (0-100) Blood Gas Specimen Type Arterial Blood Gas Sample Site Right radial Blood Gas Patient Temperature 37.0 Arterial Blood Date Drawn [id number] Arterial Blood pH 7.468 (7.350-7.450) Arterial Blood Partial Pressure CO2 27.8 mmHg (35.0-48.0) Arterial Blood Partial Pressure O2 89.2 mmHg (83.0-108.0) Arterial Blood HCO3 19.7 mmol/L (21.0-28.0) Arterial Blood Oxygen Saturation 97.1 % (94.0-98.0) Arterial Blood Base Excess -2.3 mmol/L (-2.0-3.0) Arterial Blood Oxyhemoglobin 96.6 % (94.0-98.0) Arterial Blood Carboxyhemoglobin 0.1 % (0.5-1.5) Arterial Blood Methemoglobin 0.4 % (0.0-1.5) Nathaniel Test Yes Blood Gas Total Hemoglobin 16.70 g/dL (13.5-17.5) Blood Gas Modality Nasal cannula FiO2 % 28.0 Other Laboratory Tests 12/20/24 05:48 Brief Hx & Hospital Course: Patient is a 79-year-old male with past medical history of COPD who was transferred from [facility] due to acute respiratory failure. Patient initially presented with shortness of breath requiring BiPAP, prompting transfer of the patient to [facility]. Patient subsequently was down titrated to [address] angio was done at [facility] and reviewed. Imaging showed no signs of pulmonary embolism, but suggested bilateral groundglass opacities with central predominance and interlobular septal thickening, suggestive of pulmonary edema. Pneumonia although considered less likely is not excluded. There is also an enlarged right hilar lymph node probably reactive. Coronary artery disease was noted as well. Patient was diuresed aggressively with Lasix 40 mg IV twice daily. Cardiology was consulted. TTE was done which showed LVEF of 60% with normal RV function. There is calcification of the noncoronary cusp with a mobility of the noncoronary cusp. There is also mild aortic insufficiency. There was concentric left ventricle hypertrophy with left atrial and right ventricular enlargement. Mild aortic root enlargement noted as well. Based on these findings, patient was diagnosed with heart failure with preserved ejection fraction. It was recommended that patient be discharged on spironolactone 25 mg daily. Patient was treated with ceftriaxone and doxycycline due to concern of underlying pneumonia and history of COPD. Patient's WBC count was 12.5 prior to discharge. He did not have any fevers. Patient was discharged on Augmentin and doxycycline for additional 7 days on discharge. He was also discharged on prednisone 20 mg for additional 5 days. Patient was discharged with supplemental oxygen. He was counseled on the importance of reducing salt intake and consume normally 1.5 L of fluid per day. Patient is to follow-up with pulmonology and cardiology. Patient discharged in stable condition. Patient given ER return precautions. [facility] case management to arrange follow-up appointments. Condition at Discharge: Good Final Diagnosis/Problems List Acute Respiratory Failure 2/2 Pneumonia Secondary Diagnosis: Heart Failure with Preserved Ejection Fraction Discharge Disposition: Home Discharge Instruct/Medications Diet: Regular, Cardiac 2g Na,low cholest Activity: No Restrictions, As Tolerated Follow Up/Referral: Follow up with pulmonary. Medications: Augmentin, Doxycycline, Prednisone Discharge Statement: "Patient was advised to return to the ER or call 911 if any headaches, dizziness, shortness of breath, chest pain, abdominal pain, bleeding, fevers, or worsening of medical condition. Patient was counseled about treatment plan, medications, possible side effects, patientverbalized understanding. All questions were answered to the best of my ability. This discharge took greater then 30 minutes in planning, reviewing documentation, counseling the patient, and discussing with other team members." ASSESSMENT ASSESSMENT Assessment Acute Respiratory Failure 2/2 Pneumonia CLIFFORD VAZQUEZ DO Dec 20, 2024 14:52
== END 2024-12-20 11:55 | disposition home or self-care (01) | DRG 177 ==
LOC: EDBD 15:16 → ER 15:23 → TELE-CENTR 23:15 → ER 23:15 → TELE 12-18 06:00 → TELE-CENTR 12-18 15:36
PROVIDERS: ADMIT Internal Medicine; ATTEND Internal Medicine
DX: J15.69 Pneumonia due to other Gram-negative bacteria (principal); J96.00 Acute respiratory failure, unspecified whether with hypoxia or hypercapnia; J44.0 Chronic obstructive pulmonary disease with (acute) lower respiratory infection; I50.30 Unspecified diastolic (congestive) heart failure; Z20.822 Contact with and (suspected) exposure to COVID-19; J15.9 Unspecified bacterial pneumonia; E78.5 Hyperlipidemia, unspecified; G47.00 Insomnia, unspecified; G62.9 Polyneuropathy, unspecified; I25.10 Atherosclerotic heart disease of native coronary artery without angina pectoris
CPT/HCPCS: 36415; 36600; 70450; 71045; 80053; 82805; 83880; 84484; 85025; 85610; 87426; 87804; 93005; 93306; 94640; 96374; G0378